=== PATIENT | male | born 1945 ===

== ENCOUNTER 2019-06-09 10:15 | Inpatient (IN) | payer OTHER ==
[~2019-06-09] VITALS: Ht 177.8 cm; Wt 81.6 kg
[2019-06-09] MEDS ORDERED: TAMS0.4C PO (12:24)
[2019-06-09] MEDS ORDERED: FORTAMET500 MG PO (12:24)
[2019-06-09] MEDS ORDERED: FENOFI (12:26)
[2019-06-09] MEDS ORDERED: [UNRECOGNIZED DRUG - OTHER] (12:26)
[2019-06-09] MEDS ORDERED: CLONAZEP (12:27)
[2019-06-21] MEDS ORDERED: FENOFIBRATE160 MG PO (09:01)
[2019-06-21] MEDS ORDERED: CLONAZEPAM0.5 MG PO (09:01)
[2019-06-21] MEDS ORDERED: [UNRECOGNIZED DRUG - OTHER] PO (09:02)
[2019-06-21] MEDS ORDERED: DORZOLAMIDE-TIM10 ML (09:02)
[2019-06-24] MEDS ORDERED: ELIQUIS2.5 MG PO (08:03)
[2019-06-24] MEDS ORDERED: DUI500 PO (08:03)
[2019-06-24] MEDS ORDERED: PERCOCET 5-3251 EACH PO (08:03)
== END 2019-06-24 11:08 | DRG 470 ==
LOC: SURH 06-14 10:15 → O/R 06-14 10:15 → SURH 06-21 04:11
PROVIDERS: ADMIT Orthopaedic Surgery
PROC: 0SRD0J9 Replacement of Left Knee Joint with Synthetic Substitute, Cemented, Open Approach (ICD-10-PCS; principal; 2019-06-21 06:15)
DX: M17.12 Unilateral primary osteoarthritis, left knee (principal); D62 Acute posthemorrhagic anemia; I10 Essential (primary) hypertension; E11.9 Type 2 diabetes mellitus without complications; Z79.4 Long term (current) use of insulin